=== PATIENT | female | born 1985 | race Caucasian/White ===

== ENCOUNTER → 2018-09-18 10:21 | Outpatient (CLI) | payer OTHER, SELFPAY ==
[2018-09-18 14:27] LABS: Absolute Neutrophil Count 8.5 X10^3/uL (2.0-7.7); Basophil# 0.01 X10^3/uL; Basophil% 0.1 % (0-1); Eosinophil# 0.09 X10^3/uL; Eosinophils% 0.8 % (0-5); Hematocrit 37.6 % (37-47); Hemoglobin 12.4 g/dl (12.0-15.0); Lymphocyte % 13.9 % (19-41); Mean Corpuscular Hgb 32.8 pg (27.0-32.0); Mean Corpuscular Volume 99.5 fL (81-99); Mean Platelet Vol. 12.2 fl (6.2-12.0); Monocyte# 0.67 X10^3/uL; Monocyte% 6.2 % (0-10); Neutrophil # 8.49 X10^3/uL (2.7-7.7); Neutrophil % 78.4 % (47-70); Platelet Count 215 K/mm3 (150-450); RBC Distribution Width CV 13.5 % (11.6-14.6); RBC Distribution Width SD 47.5 fl (35.1-43.9); Red Blood Count 3.78 M/mm3 (4.2-5.4); White Blood Count 10.8 K/mm3 (4.4-11.0)
[2018-09-18 14:34] LABS: POSITIVE COUNT NO; POSITIVE DIFFERENTIAL NO; POSITIVE MORPHOLOGY NO
[2018-09-18 14:57] LABS: Thyroid Stim Hormone (TSH) 0.68 uIU/mL (0.358-3.74)
[2018-09-18 15:28] LABS: HIV - WCH Non-Reactive (Nonreactive); Progesterone Level 58.49 ng/mL (See Comment); Rubella IgG 18.7 IU/mL
[2018-09-18 18:05] LABS: Chlamydia Trachomatis by PCR Negative (Negative); Neisserai gonorrhoeae by PCR Negative (Negative); Probe Check PASS; Sample Adequacy Control PASS; Specimen Processing Control PASS
[2018-09-19 11:28] LABS: HEPATITIS B SURFACE AG Negative (Negative); Hep C Antibodies <0.1 s/co ratio (0.0-0.9)
[2018-09-21 00:15] LABS: Prenatal RPR NONREACTIVE (NONREACTIVE)
[2018-09-21 09:41] LABS: HPV Reflexed? NOT INDICATED
== END ==
PROVIDERS: Visit Provider Obstetrics & Gynecology
DX: Z34.82 Encounter for supervision of other normal pregnancy, second trimester (principal); R53.83 Other fatigue; Z12.4 Encounter for screening for malignant neoplasm of cervix; Z11.3 Encounter for screening for infections with a predominantly sexual mode of transmission
CPT/HCPCS: 36415; 84144; 84443; 85025; 86703; 86762; 86803; 87340; 87491; 87591; 88175; G0145

== ENCOUNTER → 2018-12-17 13:47 | Outpatient (CLI) | payer OTHER, SELFPAY ==
[2018-12-17 15:48] LABS: Hematocrit 35.4 % (37-47); Hemoglobin 11.8 g/dl (12.0-15.0); Mean Corp Hgb Conc 33.3 g/gl (32-36); Mean Corpuscular Hgb 34.1 pg (27.0-32.0); Mean Corpuscular Volume 102.3 fL (81-99); Mean Platelet Vol. 11.8 fl (6.2-12.0); Platelet Count 203 K/mm3 (150-450); RBC Distribution Width CV 13.3 % (11.6-14.6); RBC Distribution Width SD 48.2 fl (35.1-43.9); Red Blood Count 3.46 M/mm3 (4.2-5.4); White Blood Count 12.2 K/mm3 (4.4-11.0)
[2018-12-17 15:51] LABS: Scan Indicated on CBC? Y/N NO
[2018-12-17 15:55] LABS: Glucose Challenge Gest 1H 50g 117 mg/dL (70-140)
== END ==
PROVIDERS: Visit Provider Obstetrics & Gynecology
DX: Z34.83 Encounter for supervision of other normal pregnancy, third trimester (principal)
CPT/HCPCS: 36415; 82950; 85027

== ENCOUNTER → 2019-02-06 | Outpatient (CLI) | payer OTHER, SELFPAY ==
[2014-10-05 09:07] VITALS: BMI 22.6
== END | disposition home or self-care (01) ==
LOC: LABSPEC 11:38
PROVIDERS: Visit Provider Obstetrics & Gynecology
DX: Z36.85 Encounter for antenatal screening for Streptococcus B (principal)
CPT/HCPCS: 87081

== ENCOUNTER 2019-03-01 05:20 | Inpatient (IN) | payer SELFPAY ==
[2014-10-05 09:07] VITALS: BMI 22.6
--- NOTE | 2019-02-25 17:15 | PCM.HPOB.BLA ---
History and Physical Date of Admission: 03/01/19 OB HISTORY AND PHYSICAL EXAMINATION History of this : 33 yo female Ab0 with EDC 03/08/2019 by 18 weeks 4 days Ultrasound, presents to Labor and Delivery for repeat C section delivery. She has had a prior HIGH transverse uterine incision and is not a candidate for as incision high on uterus would place her at higher chance of uterine rupture. care remarkable for 1.) Late PNC - Too late for MSAFP, CF testing declined, 2.) Previous SROM/delivery at 33-1/2 weeks GA on progesterone suppositories this 3.) Cousin with Spina Bifida , FOB had a niece born at 17 wk GA- Down Syndrome 4.) Sent to [facility] for appearance of placental membranes at 18 wks. Resolved. Failure of chorion / amnion to fuse by 18 wks 5.) Prior C section for placental abruption -- Blood transfusion, and later readmission to [place] with pain. Hoping for but review of op note states a HIGH TRANSVERSE uterine incision. Not a candidate for . Pertinent Past Medical History: negative Allergies: No Known Drug Allergies Medications: During - 28 mg-800 mcg tablet Review of Systems: Non-contributory PHYSICAL EXAMINATION General Appearance: 33 yo female in no acute distress Vital Signs: AF, VSS Heart: RRR without rubs or gallops Lungs: CTA x 2 Breasts: deferred Abdomen: gravid Pelvis: Cervix: deferred Presentation: cephalic Station: Fetus: Size: AGA Movement: present Heart: present Impression /Plan: Intrauterine at 39 wk EGA. h/o prior HIGH TRANSVERSE C section. Not a candidate for Admit for repeat C/S. See Progress Notes for Changes:
[2019-03-01] VITALS (20 sets, daily range): BP systolic 100–118; BP diastolic 46–69; PULSE 61–83; RESP 15–20; TEMP 36.3–37.1; O2SAT 90–99; BMI 30.7
[2019-03-01] MEDS: Lactated Ringers 1,000 ML 999 ML IV (05:46)
[2019-03-01 06:09] LABS: Absolute Lymphocyte Count 1.64 X10^3/ul (0.83-4.51); Basophil# 0.02 X10^3/uL; Basophil% 0.2 % (0-1); Hemoglobin 11.3 g/dl (12.0-15.0); Lymphocyte # 1.64 X10^3/ul (4.0); Lymphocyte % 17.1 % (19-41); Mean Corp Hgb Conc 33.2 g/gl (32-36); Mean Corpuscular Hgb 33.5 pg (27.0-32.0); Mean Corpuscular Volume 100.9 fL (81-99); Mean Platelet Vol. 12.1 fl (6.2-12.0); Monocyte# 0.81 X10^3/uL; Monocyte% 8.4 % (0-10); Neutrophil # 6.96 X10^3/uL (2.7-7.7); Neutrophil % 72.6 % (47-70); Platelet Count 169 K/mm3 (150-450); RBC Distribution Width CV 13.3 % (11.6-14.6); RBC Distribution Width SD 48.7 fl (35.1-43.9); Red Blood Count 3.37 M/mm3 (4.2-5.4); White Blood Count 9.6 K/mm3 (4.4-11.0)
[2019-03-01 06:15] LABS: POSITIVE COUNT NO; POSITIVE DIFFERENTIAL NO; POSITIVE MORPHOLOGY NO
[2019-03-01 06:49] LABS: International Normalized Ratio 0.9; Prothrombin Time (Protime)PT. 12.4 SECONDS (11.7-14.9)
[2019-03-01 06:50] LABS: Partial Thromboplast Time 27.6 Seconds (24.1-36.2)
[2019-03-01] MEDS: Lactated Ringers 1,000 ML 150 ML IV (06:52)
[2019-03-01] MEDS: Sodium Citrate/Citric Acid 30 ML UDC PO (06:56)
[2019-03-01] MEDS: Cefazolin 2 GM in 0.9% Normal Saline 100 ML IV (07:20)
[2019-03-01] MEDS: Ondansetron 4 MG/2 ML Vial IV (07:37)
[2019-03-01] MEDS: Ketorolac 15 MG/ML Vial 30 MG IV ×2 (07:48→14:16)
--- NOTE | 2019-03-01 08:26 | PCM.OPRPT ---
Report of Operation Date of Procedure: 03/01/19 Pre-Operative Diagnosis: 39 wk prior HIGH transverse uterine incision, not a candidate Post-Operative Diagnosis: Same Surgery/Procedure Performed:: Repeat C section general car supervisor yard: Stephenie Correa Type of Anesthesia:: Spinal Anesthesiologist: Tea Rosa CRNA Specimen's removed: placenta. Skin tag/mole (discarded) Drains: vazquez Delivery Classification: Scheduled Final DOM: 03/08/19 Gestational age: 39 Weeks and 0 Days Gleason doctor who attended delivery (if requested by OB): Johana Barragan Indications for : - - Repeat C section due to high transverse incision at prior C/S Description of Procedure: Findings: At amniotomy, clear fluid was noted. Hurtado viable female in vertex presentation. Apgars pending evaluation, Baby weight: 7# 13 oz. There was a normal appearing uterus, fallopian tubes and ovaries bilaterally. There were minimal filmy adhesions between the bladder and lower uterine segment. Baby dusky in appearance after initially very pink. Dr Avalos, respiratory therapy and print support specialist attending baby upon completion of the C section. PATH: None. Narrative account: After the risks, benefits and alternatives of the procedure were reviewed with the patient, informed consent was obtained. The patient was taken to the Operating room with an IV running, and placed in a seated position on the operating table for placement of the spinal. Once the spinal had been administered, she was briefly frog-legged for Vazquez catheter placement, and then repositioned to dorsal supine position with leftward displacement of the uterus, and prepped and draped in the usual sterile fashion. Once the spinal was deemed adequate, a Pfannenstiel skin incision was created using the knife (through the prior skin incision scar). The incision was carried down to the rectus fascia using the knife. The fascia was nicked in the midline. The fascial incision was extended bilaterally using curved Carson scissors. The superior aspect of the fascial incision was grasped with Yamilet clamps and tented up and the underlying rectus abdominal muscles were dissected free. In a similar manner, the inferior aspect of the facial incision was grasped with Yamilet clamps tented up and the underlying rectus abdominal muscles were dissected free. The rectus abdominis muscles were in the midline and the peritoneum was identified and entered by blunt dissection high in the incision. The peritoneum was stretched laterally and a bladder blade was inserted. A bladder flap was created along the lower uterine segment with Metzenbaum scissors . The uterine incision was then created using Metzenbaum scissors. The operators fingertips were used to extend the uterine incision by blunt dissection in a caudad- cephalad orientation . Clear fluid was noted at amniotomy. The vertex was then delivered atraumatically through the incision. The OP and nares were bulb suctioned on the abdomen. The shoulders delivered easily . The cord clamped x two and cut. And the was handed off to the nurse awaiting delivery after briefly showing her to her parents. The baby had a spontaneous, vigorous cry and good tone. The placenta was then delivered. The uterus was exteriorized and cleared of clots and debris . The uterine incision was repaired with 1 Vicryl in a running locked fashion. A second imbricating layer was then placed, using 1 Monocryl in running nonlocked fashion. Bovie cautery was used to treat any bleeding areas . Excellent hemostasis was noted. At this point the uterus was returned to the abdominal cavity. The gutters were cleared of clots and debris and the pelvis and abdomen were copiously irrigated. The incision at the uterus was inspected. Horizontal mattress stitches of 1 Vicryl were placed as needed along the incision and at the uterine angles for hemostasis. Nelida was applied along the entire incision for continued hemostasis. Excellent hemostasis was noted. The peritoneal edges and rectus abdominis muscles were reapproximated in the midline with a series of vertical mattress / interrupted stitches of 1 Vicryl. Nelida was applied to this layer. Excellent hemostasis was noted at the subfascial space Nelida was dusted over this layer as well. The fascia was closed in a running nonlocked fashion with a Stratofix. The Subcutaneous fatty tissue was Bovie cauterized as needed for hemostasis. Nelida was liberally dusted at this layer to prevent seroma formation. This layer was then reapproximated in a two layer closure of running 3-0 Vicryl to eliminate space. A benign appearing flesh colored 1 cm diameter skin tag was then removed from the lower abdomen over mons. The skin edges were Bovie cauterized and excellent hemostasis was noted. The skin edges were closed in a Subcuticular stitch of 4-0 Monocryl. The incision was cleansed. Cavilon, Steristrips, and Mepilex dressing were applied to the skin . The patient was then transferred to the recovery room bed in stable condition after tolerating the procedure well. Sponge, lap, needle and instrument counts correct times two. Medications given preop and intraoperatively included: Ancef 2gm given hotel recreational facilities manager to the operating room. The patient also received Pitocin given IV after cord clamp, and Toradol 30 mg IV times one. For a complete listing of medications given preop and intraoperatively, please see the anesthesia record. Amniotic Membrane Rupture Type: Artificial Amniotic Fluid Description: Clear Drain: Vazquez to straight drain Fluids Replaced: LR Cord Entanglement: None Cord Vessel Description: 3 Vessels Esitmated Blood Loss (ml): 1000 Gender: Female Delayed cord clamping: No Pre-op Antibiotic Given: Ancef 2 grams IV x1 Pt instructed on risks of surgery: Bleeding, Need for Future C-Sections Complications: None - Admit VTE Documentation VTE Present on Admission: No VTE Mechan Device Prophylaxis: SCD's
--- NOTE | 2019-03-01 08:42 | DCINST_ITS ---
Discharge Diet: No Restrictions Discharge Activity: May not drive while taking narcotic pain medications., May Shower, May Take a Tub Bath Return to work on:: 04/12/19 May resume sexual activity in: 4-6 weeks Lifting Restrictions: 20 pounds Additional Activity Instructions:: Nothing in the vagina for 4-6 weeks. You may return to work/school in 6 weeks. Change Dressing in (Days):: 7 Remove Dressing in (days):: 7 Cleanse incision/area with: Soap & Water, Keep Dressing Clean & Dry Additional Instructions: If you experience any of the following, contact your healthcare provider. * Bleeding that soaks a pad every hour for 2 hours * Fever 100.4 or higher * Unrelieved incision or abdominal pain * Swelling, redness, discharge or bleeding from your incision * Problems urinating (including inability to urinate or burning while urinating). * Visual changes * Severe headache * Flu-like symptoms * Pain or redness in one of both of your breasts * Pain, warmth, tenderness or swelling in your legs, especially the calf area * Frequent nausea and vomiting * Symptoms of depression or anxiety If you experience any of the following, call 911 or go to the nearest Emergency Room. * Chest pain * Problems breathing * Seizure activity * Partial or complete paralysis of a body part, slurred speech, weakness or drooping of the face, or a sudden inability to walk or hold your balance Allergies/Adverse Reactions: Allergies No Known Allergies Allergy (Verified 10/05/14 09:10) Medications to take at Discharge Vits [Prenatabs FA ] 1 mg PO DAILY 10/05/14 Aspirin [Aspirin, Baby] 81 mg PO DAILY@0800 03/01/19 Docusate Sodium [Colace] 100 mg PO BID #30 cap 03/01/19 Naproxen [Naprosyn] 250 - 500 mg PO TID PRN PRN #30 tab 03/01/19 Oxycodone [Oxyir] 5 mg PO Q6H PRN PRN 7 Days #20 tablet 03/01/19 Polyethylene Glycol 3350 [Miralax] 17 gm PO DAILY PRN #14 packet 03/01/19 The following prescriptions were given: Docusate Sodium [Colace] 100 mg PO BID #30 cap Transmission Status: Pending to [facility] Polyethylene Glycol 3350 [Miralax] 17 gm PO DAILY PRN #14 packet PRN Reason: Constipation [facility] Status[facility] Naproxen [Naprosyn] 250 - 500 mg PO TID PRN PRN #30 tab PRN Reason: Mild-Mod Pain (1-01/11) Transmission Status: [facility] Oxycodone [Oxyir] 5 mg PO Q6H PRN PRN 7 Days #20 tablet PRN Reason: Mod-Severe Pain (-06/13) Transmission Status: [facility] Follow-Up: Call to make an appointment with your doctor for an incision check in 1-2 weeks. You will also need a 6 week post- follow up appointment. Test results from this visit will be discussed in further detail at your follow- up appointment, if applicable. Please Follow Up With: Dang Alaniz MD - [phone] When: Call to make an appointment for an incision check in 2 weeks. Proposed Discharge Date: 03/03/19
[2019-03-01] MEDS: Lactated Ringers 1,000 ML 100 ML IV (09:00)
[2019-03-01] MEDS: Oxytocin 30 units/NS 500 ml 30 UNITS/500 ML IV.SOLN 167 UNITS IV (09:00)
[2019-03-01] MEDS: proMETHazine 25 MG/ML Syringe 12.5 MG IV (09:36)
[2019-03-01] MEDS: Senna/Docusate Sodium 1 Tablet PO (20:22)
[2019-03-01] MEDS: Naproxen 250 MG Tablet PO (20:46)
[2019-03-02] VITALS (11 sets, daily range): BP systolic 90–105; BP diastolic 50–63; PULSE 69–91; RESP 15–17; TEMP 36.5–37.2; O2SAT 97–99
[2019-03-02] MEDS: Acetaminophen 500 MG Tablet 1000 MG PO ×3 (00:35→20:15)
[2019-03-02] MEDS: Naproxen 250 MG Tablet PO ×3 (06:25→23:09)
[2019-03-02 06:46] LABS: Hematocrit 28.4 % (37-47); Hemoglobin 9.5 g/dl (12.0-15.0); Mean Corp Hgb Conc 33.5 g/gl (32-36); Mean Corpuscular Hgb 33.6 pg (27.0-32.0); Mean Corpuscular Volume 100.4 fL (81-99); Mean Platelet Vol. 11.6 fl (6.2-12.0); Platelet Count 149 K/mm3 (150-450); RBC Distribution Width CV 13.4 % (11.6-14.6); RBC Distribution Width SD 49.2 fl (35.1-43.9); Red Blood Count 2.83 M/mm3 (4.2-5.4); White Blood Count 11.8 K/mm3 (4.4-11.0)
[2019-03-02 06:49] LABS: Scan Indicated on CBC? Y/N NO
[2019-03-02] MEDS: Senna/Docusate Sodium 1 Tablet PO (10:03)
--- NOTE | 2019-03-02 10:14 | PCM.PN.OB ---
Subjective: Patient without complaints. Tolerating diet well. Pain well controlled. Wants to be discharged later today so she can go to [place] to be with her baby. - Physical Exam Vital Signs Temp Pulse Resp BP Pulse Ox 97.7 F L 78 16 96/55 L 98 03/02/19 03:40 03/02/19 06:26 03/02/19 06:26 03/02/19 03:40 03/02/19 06:26 Oxygen Delivery Method Room Air Weight: 157 lb 3.2 oz Body Mass Index (BMI) 30.7 Intake and Output for Last 24 Hours 02/28/19 03/01/19 03/02/19 23:59 23:59 23:59 Intake Total 2511 / 2511 1500 / 1500 Output Total 1750 / 1750 1999 / 1999 Balance 761 / 761 -500 / -500 Laboratory Tests Past 24 Hrs 03/02/19 06:30 WBC 11.8 H RBC 2.83 L Hgb 9.5 L Hct 28.4 L MCV 100.4 H MCH 33.6 H MCHC 33.5 RDW 13.4 RDW Differential 49.2 H Plt Count 149 L MPV 11.6 Wound is clean, dry, intact. Good urine output. Hemoglobin okay. Wound covered with Mepilex dressing. Medical Necessity - Tobacco Use Smoking Status: Never smoker Assessment/Plan Doing well postoperative day #1 status post section. Will release to home later today if tolerating diet well and able to void on own after removal of Clinton catheter. Home-going instructions given.
--- NOTE | 2019-03-02 10:50 | NURSING ---
0950 Clinton discontinued for 1100ml, sonny well. Up to the bathroom with assistance, instructed in pericare, displays understanding. 1005 Assisted to chair, pumping breasts. 1020 C/o feeling dizzy and lightheaded. Returned to bed with assistance, sonny well. States she feels better laying down. Skin warm, dry, sl pale. BP 104/50, P 69, R 12.
[2019-03-02] MEDS: Prenatal Vits Tablet 1 TABLET PO (15:05)
[2019-03-03 02:15] VITALS: BP 103/56; PULSE 82; RESP 17
[2019-03-03] MEDS: Acetaminophen 500 MG Tablet 1000 MG PO (04:07)
[2019-03-03] MEDS: Naproxen 250 MG Tablet PO (06:50)
--- NOTE | 2019-03-03 08:47 | PN.OBGYN_ITS ---
Subjective: Patient without complaints. Tolerating diet well. Positive flatus. Plans to go to [place] today to see baby and reportedly baby can go home if breast-feeding goes well. - Physical Exam Vital Signs Temp Pulse Resp BP Pulse Ox 98.7 F 82 17 103/56 L 99 03/02/19 20:20 03/03/19 02:15 03/03/19 02:15 03/03/19 02:15 03/02/19 08:00 Oxygen Delivery Method Room Air Weight: 157 lb 3.2 oz Body Mass Index (BMI) 30.7 Intake and Output for Last 24 Hours 03/01/19 03/02/19 03/03/19 23:59 23:59 23:59 Intake Total 2511 / 2511 1500 / 1500 Output Total 1750 / 1750 5300 / 5300 Balance 761 / 761 -3800 / -3800 Medical Necessity - Tobacco Use Smoking Status: Never smoker Assessment/Plan Doing well post operative day #2 status post repeat . Will release to home with routine instructions.
[2019-03-03 08:50] VITALS: BP 106/58; PULSE 86; RESP 14; TEMP 36.8
== END 2019-03-03 09:48 | disposition home or self-care (01) | DRG 788 ==
PROVIDERS: Admitting Provider Obstetrics & Gynecology; Referring Provider Obstetrics & Gynecology; Visit Provider Obstetrics & Gynecology
PROC: 10D00Z0 Extraction of Products of Conception, High, Open Approach (ICD-10-PCS; CPT 59514; principal; 2019-03-01 07:15)
DX: O34.219 Maternal care for unspecified type scar from previous cesarean delivery (principal); N85.8 Other specified noninflammatory disorders of uterus; Z3A.39 39 weeks gestation of pregnancy; Z37.0 Single live birth; L91.8 Other hypertrophic disorders of the skin
CPT/HCPCS: 36415; 85025; 85027; 85610; 85730; 86850; 86900; 94762; 99218; J7120; G0378; J2405

== ENCOUNTER → 2020-08-11 | Outpatient (CLI) | payer OTHER, SELFPAY ==
[2020-08-11 11:52] VITALS: BMI 21.9
== END | disposition home or self-care (01) ==
LOC: LABSPEC 16:43
PROVIDERS: PCP Family Medicine; Visit Provider Obstetrics & Gynecology
DX: O09.90 Supervision of high risk pregnancy, unspecified, unspecified trimester (principal); Z3A.00 Weeks of gestation of pregnancy not specified
CPT/HCPCS: 87077; 87086; 87088; 87186

== ENCOUNTER → 2020-09-17 10:50 | Outpatient (CLI) | payer OTHER, SELFPAY ==
[2020-09-17 10:21] VITALS: BMI 23.3
[2020-09-17 11:08] LABS: Absolute Lymphocyte Count 4.63 X10^3/uL (0.83-4.51); Absolute Neutrophil Count 5.9 X10^3/uL (2.0-7.7); Basophil# 0.06 X10^3/uL; Basophil% 0.5 % (0-1); Eosinophil# 0.14 X10^3/uL; Eosinophils% 1.2 % (0-5); Hematocrit 34.2 % (37-47); Hemoglobin 11.7 g/dL (12.0-15.0); Lymphocyte # 4.63 X10^3/ul (4.0); Lymphocyte % 40.6 % (19-41); Mean Corp Hgb Conc 34.2 g/dL (32-36); Mean Corpuscular Hgb 33.4 pg (27.0-32.0); Mean Corpuscular Volume 97.7 fL (81-99); Mean Platelet Vol. 10.4 fl (6.2-12.0); Monocyte# 0.57 X10^3/uL; NRBC Flagged by Analyzer 0 % (0-5); Neutrophil % 51.9 % (47-70); POSITIVE MORPHOLOGY YES; Platelet Count 227 K/mm3 (150-450); RBC Distribution Width CV 14.9 % (11.6-14.6); RBC Distribution Width SD 53.3 fl (35.1-43.9); White Blood Count 11.4 K/mm3 (4.4-11.0)
[2020-09-17 11:09] LABS: Differential Indicated SCAN CRITERIA MET
[2020-09-17 11:30] LABS: Reactive Lymphocyte 1+
[2020-09-17 11:37] LABS: Rubella IgG Reactive (Nonreactive)
== END ==
PROVIDERS: Obstetrics & Gynecology; PCP Family Medicine; Referring Provider Obstetrics & Gynecology; Visit Provider Obstetrics & Gynecology
DX: O09.90 Supervision of high risk pregnancy, unspecified, unspecified trimester (principal); O23.40 Unspecified infection of urinary tract in pregnancy, unspecified trimester; Z3A.00 Weeks of gestation of pregnancy not specified
CPT/HCPCS: 36415; 85025; 86762; 86850; 86900; 86901; 87086; 87088; 87186

== ENCOUNTER → 2020-10-15 12:31 | Outpatient (CLI) | payer OTHER, SELFPAY ==
[2020-09-17 10:21] VITALS: BMI 23.3
--- NOTE | 2020-10-15 12:34 | US_ITS ---
STUDY: SECOND AND THIRD TRIMESTER OBSTETRICAL ULTRASOUND REASON FOR EXAM: Female, 34 years old anatomy TECHNIQUE: Transabdominal real-time exam with grayscale image documentation. TECHNICAL QUALITY: Adequate. PRIOR ULTRASOUND: None. FINDINGS: There is a single intrauterine fetus. The fetus is in a cephalic presentation. There is demonstrated cardiac activity with a heart rate of 144 bpm. There is a normal amniotic fluid volume. The largest amniotic fluid pocket measures 5.8 x 6.1 cm.The placenta is posterior and not low lying. There are Grade 0 placental changes. The cervix measures 4 cm in length. The adnexal regions are not visualized. BIOMETRY: BPD: 5.0 cm: 21 weeks, 0 days HC: 18.7 cm: 20 weeks, 6 days AC: 16.6 cm: 21 weeks, 4 days FL: 3.6 cm: 21 weeks, 3 days CI: 79 FL/BPD: 73 FL/AC: 22 HC/AC: 1.13 age by current US: 21 weeks, 0 days. DOM by current US: 02/25/2021. Estimated weight: 430 grams, +/- 65 grams, 72 %. Age by LMP: 21 weeks, 2 days. DOM by LMP: 02/24/2021. ANATOMY: Gender: Indeterminant Cranium: Normal lateral ventricles. Normal choroid plexus. Normal cerebellum. Normal cisterna magna. Normal face, nose and lips. Chest: Normal 4-chamber heart. Abdomen/Pelvis: Normal diaphragm. Normal stomach. Normal abdominal wall. Normal cord insertion. Normal 3 vessel cord. Normal kidneys. Normal bladder. Spine: Normal cervical spine. Normal thoracic spine. Normal lumbar spine. Normal sacrum. Extremities: Normal bilateral upper extremities. Normal bilateral lower extremities. US/OB Anatomy Scan IMPRESSION: Single living intrauterine fetus of 21 weeks and 0 days with an DOM of 02/25/2021. Normal anatomic survey. Normal amniotic fluid volume. Grade 0, posterior and not low lying placenta. Cervical length of 4 cm. Electronically Signed: Alysia Wilson MD at 19:37 EST , Service support ,
== END ==
PROVIDERS: PCP Family Medicine; Referring Provider Obstetrics & Gynecology; Visit Provider Obstetrics & Gynecology
DX: O09.90 Supervision of high risk pregnancy, unspecified, unspecified trimester (principal); Z3A.00 Weeks of gestation of pregnancy not specified
CPT/HCPCS: 76805; 87086; 87088

== ENCOUNTER → 2020-12-09 09:26 | Outpatient (CLI) | payer OTHER, SELFPAY ==
[2020-11-12 10:22] VITALS: BMI 25.0
[2020-12-09 10:09] LABS: Absolute Lymphocyte Count 2.05 X10^3/uL (0.83-4.51); Absolute Neutrophil Count 7.1 X10^3/uL (2.0-7.7); Basophil# 0.03 X10^3/uL; Basophil% 0.3 % (0-1); Eosinophil# 0.24 X10^3/uL; Eosinophils% 2.4 % (0-5); Hematocrit 35.5 % (37-47); Hemoglobin 11.9 g/dL (12.0-15.0); Lymphocyte # 2.05 X10^3/ul (4.0); Lymphocyte % 20.3 % (19-41); Mean Corp Hgb Conc 33.5 g/dL (32-36); Mean Corpuscular Hgb 34.4 pg (27.0-32.0); Mean Corpuscular Volume 102.6 fL (81-99); Mean Platelet Vol. 10.6 fl (6.2-12.0); Monocyte# 0.64 X10^3/uL; Monocyte% 6.3 % (0-10); NRBC Flagged by Analyzer 0 % (0-5); Neutrophil # 7.05 X10^3/uL (2.7-7.7); Platelet Count 267 K/mm3 (150-450); RBC Distribution Width CV 13.5 % (11.6-14.6); RBC Distribution Width SD 51.1 fl (35.1-43.9); Red Blood Count 3.46 M/mm3 (4.2-5.4); White Blood Count 10.1 K/mm3 (4.4-11.0)
[2020-12-09 10:15] LABS: Glucose Challenge Gest 1H 50g 72 mg/dL (70-140)
== END ==
PROVIDERS: PCP Family Medicine; Referring Provider Obstetrics & Gynecology; Visit Provider Obstetrics & Gynecology
DX: Z34.90 Encounter for supervision of normal pregnancy, unspecified, unspecified trimester (principal); Z13.1 Encounter for screening for diabetes mellitus
CPT/HCPCS: 36415; 82950; 85025

== ENCOUNTER → 2020-12-17 | Outpatient (CLI) | payer OTHER, SELFPAY ==
[2020-12-17 09:52] VITALS: BMI 25.9
== END | disposition home or self-care (01) ==
LOC: LABSPEC 16:14
PROVIDERS: PCP Family Medicine; Referring Provider Nurse Practitioner Women's Health; Visit Provider Nurse Practitioner Women's Health
DX: O23.40 Unspecified infection of urinary tract in pregnancy, unspecified trimester (principal); Z3A.00 Weeks of gestation of pregnancy not specified
CPT/HCPCS: 87086; 87088

== ENCOUNTER → 2020-12-23 08:47 | Outpatient (CLI) | payer SELFPAY, OTHER ==
[2020-12-17 09:52] VITALS: BMI 25.9
--- NOTE | 2020-12-23 08:49 | US_ITS ---
STUDY: SECOND AND THIRD TRIMESTER OBSTETRICAL ULTRASOUND REASON FOR EXAM: Female, 35 years old growth LMP: 05/21/2020. TECHNIQUE: Transabdominal TECHNICAL QUALITY: Adequate. PRIOR ULTRASOUND: Comparison is made with prior study dated 10/15/2020. FINDINGS: There is a single intrauterine fetus. The fetus is in a cephalic presentation. There is demonstrated cardiac activity with a heart rate of 133 bpm. There is a normal amniotic fluid volume. The largest amniotic fluid pocket measures 3.7 cm. The amniotic fluid index (PAULETTE) is none 0.8 cm. The placenta is fundal in location. There are Grade 1 placental changes. The cervix measures 4.3 cm in length. The adnexal regions are not visualized. BIOMETRY: BPD: 7.71 cm: 30 weeks, 6 days HC: 28.27 cm: 31 weeks, 0 days AC: 27.38 cm: 31 weeks, 3 days FL: 5.8 sono: 30 weeks, 2 days CI: 81% FL/BPD: 75% FL/HC: FL/AC: 21% HC/AC: 1.03 age by current US: 30 weeks, 3 days. DOM by current US: 02/28/2021. Estimated weight: 1702 grams, +/- 55 grams, 46 %. age by prior US: 30 weeks, 6 days. ODM by prior US: 02/25/2021. Age by LMP: 30 weeks, 6 days. DOM by LMP: 02/25/2021. US/OB Limited With Biometrics IMPRESSION: Single live uterine gestation with a mean gestational age of 30 weeks and 6 days. The measurements obtained today fall within the normal expected range. Electronically Signed: Max Vieira MD at 13:20 EDT , Service support ,
== END ==
PROVIDERS: PCP Family Medicine; Referring Provider Nurse Practitioner Women's Health; Visit Provider Nurse Practitioner Women's Health
DX: O09.93 Supervision of high risk pregnancy, unspecified, third trimester (principal); Z3A.31 31 weeks gestation of pregnancy
CPT/HCPCS: 76816

== ENCOUNTER → 2021-01-21 | Outpatient (CLI) | payer OTHER, SELFPAY ==
[2021-01-21 10:52] VITALS: BMI 25.9
== END | disposition home or self-care (01) ==
LOC: LABSPEC 12:41
PROVIDERS: PCP Family Medicine; Referring Provider Obstetrics & Gynecology; Visit Provider Obstetrics & Gynecology
DX: O23.40 Unspecified infection of urinary tract in pregnancy, unspecified trimester (principal); Z3A.00 Weeks of gestation of pregnancy not specified
CPT/HCPCS: 87086; 87088

== ENCOUNTER → 2021-01-28 | Outpatient (CLI) | payer OTHER, SELFPAY ==
[2021-01-28 11:27] VITALS: BMI 25.9
== END | disposition home or self-care (01) ==
PROVIDERS: PCP Family Medicine; Referring Provider Obstetrics & Gynecology; Visit Provider Obstetrics & Gynecology
DX: Z34.93 Encounter for supervision of normal pregnancy, unspecified, third trimester (principal); Z3A.35 35 weeks gestation of pregnancy
CPT/HCPCS: 87081

== ENCOUNTER → 2021-02-08 | Outpatient (CLI) | payer OTHER, SELFPAY ==
[2021-02-08 10:01] VITALS: BMI 25.9
== END | disposition home or self-care (01) ==
LOC: LABSPEC 16:47
PROVIDERS: PCP Family Medicine; Visit Provider Obstetrics & Gynecology
DX: R30.0 Dysuria (principal)
CPT/HCPCS: 87086; 87088

== ENCOUNTER 2021-02-18 05:20 | Inpatient (IN) | payer SELFPAY ==
[2020-11-12 10:22] VITALS: BMI 25.0
[2021-02-15 11:29] VITALS: BMI 25.9
[2021-02-18] VITALS (17 sets, daily range): BP systolic 84–114; BP diastolic 35–62; PULSE 55–93; RESP 16–18; TEMP 36.2–36.9; O2SAT 97–100; BMI 28.2
[2021-02-18] MEDS: Lactated Ringers 1,000 ML 999 ML IV (05:45)
[2021-02-18] MEDS: Acetaminophen 500 MG Tablet 1000 MG PO ×3 (05:45→18:24)
[2021-02-18 05:54] LABS: Absolute Lymphocyte Count 1.69 X10^3/uL (0.83-4.51); Absolute Neutrophil Count 7.2 X10^3/uL (2.0-7.7); Basophil# 0.04 X10^3/uL; Basophil% 0.4 % (0-1); Eosinophil# 0.21 X10^3/uL; Eosinophils% 2.1 % (0-5); Hematocrit 37.5 % (37-47); Hemoglobin 12.4 g/dL (12.0-15.0); Lymphocyte # 1.69 X10^3/ul (0.83-4.51); Lymphocyte % 17.1 % (19-41); Mean Corp Hgb Conc 33.1 g/dL (32-36); Mean Corpuscular Hgb 34.3 pg (27.0-32.0); Mean Corpuscular Volume 103.9 fL (81-99); Mean Platelet Vol. 11.3 fl (6.2-12.0); Monocyte# 0.63 X10^3/uL; Monocyte% 6.4 % (0-10); NRBC Flagged by Analyzer 0 % (0-5); Neutrophil # 7.19 X10^3/uL (2.7-7.7); Neutrophil % 72.5 % (47-70); Platelet Count 202 K/mm3 (150-450); RBC Distribution Width CV 13.7 % (11.6-14.6); RBC Distribution Width SD 52.8 fl (35.1-43.9); Red Blood Count 3.61 M/mm3 (4.2-5.4); White Blood Count 9.9 K/mm3 (4.4-11.0)
[2021-02-18] MEDS: Lactated Ringers 1,000 ML 150 ML IV (06:43)
[2021-02-18] MEDS: Sodium Citrate/Citric Acid 30 ML UDC PO (07:17)
[2021-02-18] MEDS: Cefazolin 2 GM in 0.9% Normal Saline 100 ML IV (07:20)
--- NOTE | 2021-02-18 07:25 | HP.PCM_ITS ---
History and Physical Date of Admission: 02/18/21 Intake Visit Reasons: 38 WK OB Chief Complaint: est ob Is patient in pain?: No Allergies No Known Allergies Allergy (Verified 01/28/21 11:14) Medications vit,[id number] 1 mg PO DAILY 10/05/14 [History Confirmed 02/08/21] progesterone micronized 200 mg capsule 200 mg VAGINAL QHS #30 cap 12/31/20 [Rx Confirmed 02/08/21] Last Menstral Period: 05/21/20 Zika: Zika virus screening: Negative : No PFSH PFSH Surgical History (Updated 02/08/21 @ 10:26 by Susy Colindres) S/P Family History Mother Hypertension Social History Smoking Status: Never smoker alcohol intake: never substance use type: does not use caffeine: No additional social history: - Aaron Pregancy History 6 Elective abortions Hx Para 5 Spontaneous abortions Hx # Term Pregnancies Ectopic pregnancies Hx # Pregnancies Multiple births # of living children Past Pregnancies Del. Date Name GA/Weeks Outcome Route Bth Weight Gen Labor Lgth Anesthesia Del Locatn Provider FOB 03/23/10 Brad 39 live - full term 7lbs 15oz Male [facility] 05/24/12 Malvin 38 live - full term 8lbs 1oz Male Home Aaron 10/07/14 Jonh 34 live - 5lbs 5oz Male [facility] Dr. Katty Walker 04/17/17 Dayna 39 live - full term 8lbs 2oz Female Whitney Walker 03/01/19 Delicia 39 live - full term 7lbs 13oz Female spinal [facility] Dr. Katty Walker Delivery Date: 03/23/10 No issues during or delivery. Sienna Lujanh Delivery Date: 05/24/12 Bed rest due to labor at 34 weeks. Sienna Lujanh Delivery Date: 10/07/14 No issues during . Ruptured . [facility]: 04/17/17 Placenta abruption-emergency csection Dayna Lujan Delivery Date: 03/01/19 Scheduled csection. Fluid in lungs-transported to [facility] Dayna Lujan HPI 38 WK OB Details: DONTRELL GARCIA is a 35 year old who presents for routine OB visit. OB Visit DOM Calculator Estimated Delivery Date Method Current WG Current Estimate 02/25/21 LMP (Certain) 37w 4d Other Estimates 02/22/21 Ultrasound #1 38w 0d Expected Delivery Route/Plan RLTCS Labor Preferences- CB/BF classes: no labor support person: Aaron labor intervention preferences: [] pain management options preferred: [] cut cord/dad catch: [] : yes PP control planned: BS with CS discussed possible routes of delivery and associated risks: [] special requests: [] Specific Issue/Plans flu vaccine: decline tdap vaccine: decline rhogam: na LARC form signed: yes Problem list reviewed and updated with the most current plan of care details and appropriate orders placed. Relevant counseling for the gestational age provided. Continue routine care and follow up unless otherwise noted in visit notes/problem list details Initial Weight: 130 lb Date EGA Weight BP Urine Prot Glucose FHR FuHt Pres Dilation Effaced St Visit Note 08/11/20 11w 5d 128 lb 2 oz (-1 lb 14 oz) 110/72 163 GP - CRL 56mm consistent with LMP. 09/17/20 17w 0d 136 lb (+6 lb) 106/72 150 SM- no vb cramping ready to start progesterone prefers vaginal. 2 term pregnancies most recently declines additional interventions. 10/15/20 21w 0d 140 lb 8 oz (+10 lb 8 oz) 104/60 Negative Negative 146 MH-No VB, LOF. Feeling movement. US today. Refill vaginal progesterone 12/17/20 30w 0d 151 lb 8 oz (+21 lb 8 oz) 104/60 Negative Negative 146 27 Transverse MH-No VB, LOF. Good FM. Growth US ordered MH-No VB, LOF. Good FM. Growth US ordered. Some dysuria-neg UA dip, culture pending. 12/31/20 32w 0d 154 lb (+24 lb) Negative Negative 140 30 Cephalic SM- no vb lof good fm no regular ctx 01/21/21 35w 0d 157 lb 8 oz (+27 lb 8 oz) 120/68 Negative Negative 140 35 Cephalic GP - no LOF, VB, DFM, ctx. RCD scheduled. 01/28/21 36w 0d 158 lb (+28 lb) 104/78 140 36 Cephalic Sm- no vb, lof good fm no regular ctx. 02/08/21 37w 4d 161 lb (+31 lb) 108/70 Negative Negative 125 37 Breech SM- no vb lof good fm no regular ctx ACOG First Trimester First Trimester: Desire for , Alcohol, Tobacco Cessation, Illicit/Recreational Drug/Substance Use, Intimate Partner Violence, Barriers to care, Unstable Housing, Communication Barriers, Environmental/Work Hazards, Anticipated Course of Care, Toxoplasmosis Precations, Use of Any medications, Sexual activity, Exercise, Dental Care, Sauna/Hot tub use, Seat Belt use, Childbirth classes/Hospital facilities, , Travel, Indications for Ultrasound and Screening for Aneuploidy Third Trimester Third Trimester: Pain Management Plans, Labor support person(s), Immediate Larc, Circumcision preference, Signs and Symptoms of Preeclampsia, Labor Signs, Infant Feeding Yes and Depression Diagnostics Diagnostics Diagnostics: Blood Type A POSITIVE Antibody Screen NEGATIVE Glucose 1 Hr 50 gm 72 mg/dL (70-140) Rubella IgG Antibody Reactive (Nonreactive) Hgb 11.9 g/dL (12.0-15.0) L Hct 35.5 % (37-47) L Details: HIV: Urine Culture: Sequential Screen: NIPT Screen: Results POC Urinalysis Dip (Clinic) Office Urine Color Yellow Last Edit by Susy Colindres on 02/08/21 10:07 Office Urine Clarity Clear Last Edit by Susy Colindres on 02/08/21 10:07 Office Urine Glucose Negative Last Edit by Susy Colindres on 02/08/21 10:07 Office Urine Ketones Negative Last Edit by Susy Colindres on 02/08/21 10:07 Off Ur Spec Montgomery 1.015 Last Edit by Susy Colindres on 02/08/21 10:07 Office Urine pH Last Edit by Susy Colindres on 02/08/21 10:07 Office Urine Bilirubin Negative Last Edit by Susy Colindres on 02/08/21 10:07 Office Urine Urobilinogen Negative Last Edit by Susy Colindres on 02/08/21 10:07 Office Urine Blood Trace Last Edit by Susy Colindres on 02/08/21 10:07 Office Urine Blood Hemolyzed Last Edit by Susy Colindres on 02/08/21 10:07 Office Urine Protein Negative Last Edit by Susy Colindres on 02/08/21 10:07 Office Urine Nitrate Negative Last Edit by Susy Colindres on 02/08/21 10:07 Off Ur Leukocytes Negatve Last Edit by Susy Colindres on 02/08/21 10:07 Coding Level of Care Code OB Routine Diagnoses Z3A.35 Weeks of gestation: 35 weeks Supervision of high risk , antepartum O09.90 Hx of section Z98.891 History of delivery Z87.51 History of placental abruption Z87.59 UTI (urinary tract infection), affecting care of mother, antepartum O23.40 Grand multipara Z64.1 36 weeks gestation of Z3A.36 Assessment and Plan Assessment and Plan (1) : Status: Acute Qualifiers: Weeks of gestation: 35 weeks Qualified Code(s): Z3A.35 - 35 weeks gestation of Comment: Declines NIPT, carrier, NTD screening. Limited labs - CBC, T&S, rubella, urine cx, anatomy nl. GBS negative (2) Supervision of high risk , antepartum: Status: Acute Comment: PRR(limited OB labs) DOM 02/25/21 Morris! PC:Malvin Salinas Jared, Hannah, Rachel Spouse:Aaron (3) Hx of section: Status: Acute Comment: x2. First for abruption. Second scheduled repeat. Told uterine scar too high for TOLAC. c/s 02/18/21 at 0730 (4) History of delivery: Status: Acute Comment: One labor with term delivery. One 34w PCD for abruption. All after 34w so no CL screening. Discussed progesterone. Requests vaginal not IM. on progesterone per MFM (5) History of placental abruption: Status: Acute Comment: Emergent at 34 weeks in number 4. Had PPH. Required blood PP. MFM recommended ASA last - plan ASA at 12w. (6) UTI (urinary tract infection), affecting care of mother, antepartum: Status: Acute Comment: 10/2020 neg rpt; + culture 12/17/20 (7) Grand multipara: Status: Acute Comment: x3, x2. (8) 36 weeks gestation of : Status: Acute Comment: electronic covid test ordered 02/02/21 (scheduled for 02/15/21 at 1340) Plan Details Other Orders: Orders: POC Urinalysis 2 Dip (Clinic) Today POC Urinalysis Dip (Clinic) Today R30.0 Culture, Urine Today R30.0 admits for RLTCS
[2021-02-18 08:00] LABS: Syphilis Antibodies Non-reactive
[2021-02-18 08:04] LABS: HIV - WCH Non-Reactive (Nonreactive); Hepatitis B Surface Antigen Non-Reactive (Nonreactive); Hepatitis C Antibody Non-Reactive (Nonreactive)
[2021-02-18 08:22] LABS: Chlamydia Trachomatis by PCR Negative (Negative); Neisserai gonorrhoeae by PCR Negative (Negative); Probe Check PASS; Sample Adequacy Control PASS; Specimen Processing Control PASS
[2021-02-18] MEDS: Oxytocin 30 units/NS 500 ml 30 UNITS/500 ML IV.SOLN 167 UNITS IV (08:40)
[2021-02-18] MEDS: Lactated Ringers 1,000 ML 100 ML IV ×2 (10:00→15:38)
[2021-02-18] MEDS: Ketorolac 30 MG/ML Syringe IV ×2 (10:36→18:24)
[2021-02-18] MEDS: Senna/Docusate Sodium 1 Tablet PO (12:16)
--- NOTE | 2021-02-18 16:36 | NURSING ---
reporting feeling slightly dizzy still but better. moving well in bed.
[2021-02-18] MEDS: 0.9% Saline Lock 10 ML Syringe IV (18:24)
--- NOTE | 2021-02-18 18:58 | OP.PCM_ITS ---
Maternal Data Information DOM Calculator Estimated Delivery Date Method Current WG Current Estimate 02/25/21 LMP (Certain) 39w 0d Other Estimates 02/22/21 Ultrasound #1 39w 3d Final DOM Source: LMP Gestational age: 39 Details Operative Information Date of Procedure: 02/18/21 Pre-Operative Diagnosis: previous cs x 2 desired sterilization Post-Operative Diagnosis: same Indications for : Repeat Elective and Desires elective sterilization Classification: Scheduled Procedure Type: tubal ligation (filshie clips) commercial technician #1: Zen Moreno Type of Anesthesia: Spinal Special Medications: none Antibiotic Given: Ancef 2 grams IV x1 Drain: [place] to straight drain Estimated Blood Loss: 800 Fluids Replaced: crystalloid Findings Description of Procedure: The patient was placed in the dorsal supine position with leftward tilt. Patient was prepped and draped in the normal sterile fashion. Pfannenstiel skin incision was made with the scalpel and carried through to the underlying layer of fascia with the scalpel. Fascia was nicked in the midline and the incision extended laterally. The rectus bellies were dissected off superiorly and inferiorly with out complication both sharply and bluntly. The peritoneum was entered digitally. The incision was stretched and a low transverse uterine incision was made with the scalpel. The 's head was delivered atraumatically followed by the anterior and posterior shoulders without complication the rest of the infant delivered. The cord was clamped and cut and the was handed off to awaiting nurse. The placenta was delivered spontaneously immediately following and was noted to be intact and have a three- vessel cord. The uterus was exteriorized cleared of all clots and debris, and the incision was closed in a single layer closure using #1 Monocryl with two finger of 8 sutures and juve applied for hemostasis. The ovaries and fallopian tubes were noted to be within normal limits, filshie clips placed bilaterally occluding the tubes on the mid interstitial portion.. The uterus was returned to the maternal abdomen and gutters were cleared of all clots and debris. The peritoneum was closed with 3-0 Monocryl in a running fashion. Gloves were changed prior to fascial closure. Fascia was closed with 0 PDS in a running fashion. Subcutaneous tissue was copiously irrigated and the skin was closed with 3-0 Monocryl in a subcuticular fashion. Mepilex dressing was applied without complication. Patient was taken to recovery in stable condition. Amniotic Membrane Rupture Type: Artificial Amniotic Fluid Description: Clear Placental Delivery Description: Spontaneous Placenta Disposition: [facility] Cord Vessel Description: 3 Vessels Cord Entanglement: None Infant A Gender: Female Delayed Cord Clamping: Yes Complications Risks of Surgery Discussed w/Patient: Bleeding, Infection, Need for Future C- Sections and Injury to surrounding structure(s) including bowel and bladder Complications: none Admit VTE Documentation VTE Present on Admission: No VTE Mechan Device Prophylaxis: SCD's Multi Select Codes Urinary/Genital Urinary/Genital CPT Codes: 31509 C/S+TL (filshie clips bilateral occlusion) and 28645 Delivery [facility]
--- NOTE | 2021-02-18 19:06 | PCM.DC ---
Discharge Instructions Diet Discharge Diet: No restrictions Activity Discharge Activity: May Not Drive (for 2 weeks or while taking narcotic pain medications.), May Shower and May Take a Tub Bath (in 7 days) May shower in (days): 0 May resume sexual activity in: 4-6 weeks Weight Bearing Status: Full weight bearing Lifting Restrictions: 20 pounds Dressing / Incision Call your doctor if your incision/area has: Continuous Slow Oozing, Sudden Increased Bleeding, Increased Pain/ Swelling, Increased Redness and Foul Smelling Discharge Call your doctor if you observe: Fever of 101 or Higher and Using more than 1 pad per hour (for 2 hours) Suture Line Care: Avoid Pulling/Pushing and Avoid Pinching/Bending Cleanse incision/area with: Soap & Water and Keep Dressing Clean & Dry Follow Up Care Please Follow Up With: Mary Montgomery MD When: Call [phone] to make an appointment for an incision check in 1-2 weeks. Test Results: Test results from this visit will be discussed in further detail at your follow-up appointment, if applicable. Discharge Plan Admission Admit Date/Time: 02/18/21 05:20 Primary Reason for Your Visit: delivery Attending Provider: Mary Montgomery Primary Care Provider: Fredis Villalobos Discharge Orders/Prescriptions Prescriptions: New naproxen 250 MG tablet 250 - 500 mg PO Q8H PRN PRN (Reason: MILD PAIN) Qty: 30 RF: 1 oxycodone-acetaminophen [Endocet] 5-325 mg tablet 1 tab PO Q4H PRN (Reason: pain) 7 Days Qty: 20 RF: 0 Continued vit,[id number] 1 TABLET tablet 1 mg PO DAILY RF: 0 Referrals / Follow Up: Fredis Villalobos DO [Primary Care Provider] - Mary Montgomery MD [STAFF PHYSICIAN] - Disposition Disposition (needs filled in before D/C Order can be placed): Home, self care
[2021-02-19] VITALS: BP 88/47; PULSE 69; RESP 16; TEMP 36.4; O2SAT 96
[2021-02-19] MEDS: 0.9% Saline Lock 10 ML Syringe IV ×2 (00:16→06:10)
[2021-02-19] MEDS: Ketorolac 30 MG/ML Syringe IV ×2 (00:16→06:11)
[2021-02-19] MEDS: Acetaminophen 500 MG Tablet 1000 MG PO ×3 (00:17→12:16)
[2021-02-19 01:02] VITALS: BP 97/43; PULSE 65
[2021-02-19 04:08] VITALS: BP 85/41; PULSE 70; RESP 18; TEMP 37.3; O2SAT 97
--- NOTE | 2021-02-19 04:15 | NURSING ---
Patient with BP 85/41 in low-fowlers position on right upper arm. pt denies dizziness, light-headedness, nausea.
[2021-02-19 04:30] LABS: Hematocrit 29.6 % (37-47); Hemoglobin 9.7 g/dL (12.0-15.0); Mean Corp Hgb Conc 32.8 g/dL (32-36); Mean Corpuscular Hgb 34.3 pg (27.0-32.0); Mean Corpuscular Volume 104.6 fL (81-99); Mean Platelet Vol. 11.1 fl (6.2-12.0); Platelet Count 161 K/mm3 (150-450); RBC Distribution Width CV 13.8 % (11.6-14.6); RBC Distribution Width SD 52.9 fl (35.1-43.9); Red Blood Count 2.83 M/mm3 (4.2-5.4); White Blood Count 9.6 K/mm3 (4.4-11.0)
[2021-02-19 09:00] VITALS: BP 100/53; PULSE 72; RESP 16; TEMP 37.1; O2SAT 97
[2021-02-19] MEDS: Senna/Docusate Sodium 1 Tablet PO (10:18)
[2021-02-19] MEDS: Prenatal Vits Tablet 1 TABLET PO (10:18)
--- NOTE | 2021-02-19 10:56 | PCM.PN.OB ---
Subjective Subjective Patient doing well without complaints. Tolerating PO. Ambulating and voiding without difficulty. feeding well. Denies chest pain, shortness of breath, calf pain/swelling, fevers, chills, lightheadedness. some low blood pressures overnihgt, reassuring blood counts, increase oral intake Objective Data Objective Data Vital Signs: Vital Signs Temp Pulse Resp BP Pulse Ox 98.8 F 72 16 100/53 L 97 02/19/21 09:00 02/19/21 09:00 02/19/21 09:00 02/19/21 09:00 02/19/21 09:00 Oxygen Delivery Method Room Air Weight: 164 lb 7.437 oz Body Mass Index (BMI) 28.2 Intake & Output: Intake and Output for Last 24 Hours 02/17/21 02/18/21 02/19/21 23:59 23:59 23:59 Intake Total 5954.05 / 5954.05 Output Total 850 / 1500 1450 / 1450 Balance 5104.05 / 4454.05 -1450 / -1450 Lab / Micro Data Result Diagrams: 02/19/21 04:22 Labs: Laboratory Results - last 24 hr 02/19/21 04:22 WBC 9.6 RBC 2.83 L Hgb 9.7 L Hct 29.6 L MCV 104.6 H MCH 34.3 H MCHC 32.8 RDW Std Deviation 52.9 H RDW Coeff of Taras 13.8 Plt Count 161 MPV 11.1 Micro: Microbiology 02/18/21 05:45 Mucosa - Nose SARS-CoV-2 Antigen (Rapid) - Final ROS Constitutional Constitutional: Reports systems reviewed and no addt'l complaints, except as documented Cardiovascular Cardiovascular: Reports systems reviewed and no addt'l complaints, except as documented Respiratory/Chest Respiratory/Chest: Reports systems reviewed and no addt'l complaints, except as documented Gastrointestinal Gastrointestinal: Reports systems reviewed and no addt'l complaints, except as documented Physical Exam Const alert, oriented x3 and no apparent distress HEENT Head and Scalp: atraumatic Resp normal respiratory effort GI soft to palpation and non-tender Inspection: incision intact, healing well and drainage (none) Bimanual Exam - Vag & Uterus: uterus non-tender Uterus Palpation: uterus fundus firm (below Umbilicus) Assessment & Plan (1) delivery delivered: COMMENT: LTCS BTL SM 39 PLAN: s/p LTCS PPD # 1 1. routine post care 2. breast feeding- support given 3. rh positive 4. rubella immune low bps- improving now, all other VSS continue increasing oral intake
[2021-02-19] MEDS: Naproxen 500 MG Tablet PO (12:17)
[2021-02-19 12:20] VITALS: BP 128/92; PULSE 91; RESP 18; TEMP 37.1; O2SAT 100
[2021-02-19] MEDS: oxyCODONE 5 MG Tablet PO (14:20)
[2021-02-19 16:30] VITALS: BP 98/56; PULSE 85; RESP 16; TEMP 37; O2SAT 97
== END 2021-02-19 17:10 | disposition home or self-care (01) | DRG 785 ==
PROVIDERS: Admitting Provider Obstetrics & Gynecology; PCP Family Medicine; Referring Provider Obstetrics & Gynecology; Visit Provider Obstetrics & Gynecology
PROC: 10D00Z1 Extraction of Products of Conception, Low, Open Approach (ICD-10-PCS; CPT 59514; principal; 2021-02-18 07:15)
DX: O34.219 Maternal care for unspecified type scar from previous cesarean delivery (principal); Z30.2 Encounter for sterilization; Z37.0 Single live birth; Z3A.39 39 weeks gestation of pregnancy
CPT/HCPCS: 85025; 85027; 86703; 86780; 86803; 86850; 86900; 86901; 87340; 87426; 87491; 87591; 99218; 99251; J7120; A4216; G0378; G0463